=== PATIENT | female | born 1995 | race Caucasian/White ===

== ENCOUNTER 2016-06-07 18:37 | Observation (INO) | payer BC, OTHER ==
[2016-06-07 19:51] LABS: Hematocrit 39 % (35-47); Mean Corpuscular HGB Conc 33 g/dl (31-36); Mean Corpuscular Hemoglobin 28 pg (27-31); Mean Corpuscular Volume 85 fL (80-97); Mean Platelet Volume 8 um3 (7.4-10.4); Red Blood Count 4.62 10^6/ul (4.0-5.4); Red Cell Distribution Width 15 % (10.5-15); White Blood Count 8.4 10^3/ul (3.5-10.8)
[2016-06-07 19:59] LABS: ALT 9 U/L (7-52); AST 15 U/L (13-39); Albumin 4.4 g/dL (3.2-5.2); Alkaline Phosphatase 39 U/L (34-104); Anion Gap 6 mmol/L (2-11); BUN/Creatinine Ratio 11.7 (8-20); Blood Urea Nitrogen 9 mg/dL (6-24); CO2 Carbon Dioxide 26 mmol/L (22-32); Chloride 106 mmol/L (101-111); EGFR African American 121.7 (>60); EGFR Non-African American 94.6 (>60); Globulin 2.7 g/dL (2-4); Glucose 98 mg/dL (70-100); Potassium 3.7 mmol/L (3.5-5.0); Sodium 138 mmol/L (133-145); Total Protein 7.1 g/dL (6.4-8.9)
[2016-06-07 20:11] LABS: Acetaminophen < 15 mcg/mL; Alcohol < 10 mg/dL (<10); Salicylate < 2.50 mg/dL (<30)
[2016-06-07 20:21] LABS: TSH (Thyroid Stimulating Horm) 1.37 mcIU/mL (0.34-5.60)
[2016-06-07 20:34] LABS: Urine Bacteria Absent (Absent); Urine Bilirubin Negative (Negative); Urine Glucose Negative (Negative); Urine Nitrite Negative (Negative)
[2016-06-07 20:36] LABS: Benzodiazepine Urine Screen None Detected (None Detect)
--- NOTE | 2016-06-07 21:51 | ED ---
Fabricio Cole Claudia, scribed for Silvana Ramírez MD on 06/07/16 at 2014 . Psychiatric Complaint - HPI Summary HPI Summary: 20 year old female presents to the ED with depressive thoughts. Pt notes she took 90mg of Lexapro at about 1700 today. She notes that she has not been taking them but she notes that she had some left over. She notes that she has been feeling more stressed with school and spring break approaching. She notes no suicidal thoughts or plans today or in the past. - History Of Current Complaint Chief Complaint: EDOverdose Time Seen by Provider: 06/07/16 18:58 Hx Obtained From: Patient Onset/Duration: Sudden Onset Character: Depressed Ingestion History: Type/Name Of Drug - Lexapro, Amount Ingested - 90mg, Approximate Time Of Ingestion - 1700 - Allergies/Home Medications Allergies/Adverse Reactions: Allergies Allergy/AdvReac Type Severity Reaction Status Date / Time Penicillins Allergy Unknown Verified 06/07/16 18:43 Reaction Details Sulfa Antibiotics Allergy Unknown Verified 06/07/16 18:43 Reaction Details PMH/Surg Hx/FS Hx/Imm Hx Previously Healthy: Yes Endocrine/Hematology History: Denies: Hx Diabetes Cardiovascular History: Denies: Hx Myocardial Infarction - Immunization History Date of Tetanus Vaccine: utd Date of Influenza Vaccine: unk Infectious Disease History: Denies: Traveled Outside the [place] in Last 30 Days - Family History Known Family History: Positive: Other - Depression - Social History Occupation: Student Lives: Alone Alcohol Use: Occasionally Substance Use Type: Reports: Prescribed Substance Use Comment - Amount & Last Used: lexapro - took 90 mg today Smoking Status (MU): Never Smoked Tobacco Review of Systems Constitutional: Negative Negative: Fever, Chills Eyes: Negative ENT: Negative Cardiovascular: Negative Respiratory: Negative Gastrointestinal: Negative Genitourinary: Negative Musculoskeletal: Negative Skin: Negative Neurological: Negative Positive: Depressed All Other Systems Reviewed And Are Negative: Yes Physical Exam Triage Information Reviewed: Yes Vital Signs On Initial Exam: Initial Vitals Temp Pulse Resp BP Pulse Ox 98.2 F 92 18 146/93 100 06/07/16 18:44 06/07/16 18:44 06/07/16 18:44 06/07/16 18:44 06/07/16 18:44 Vital Signs Reviewed: Yes Appearance: Positive: Well-Appearing, No Pain Distress Skin: Positive: Warm, Skin Color Reflects Adequate Perfusion, Dry Eyes: Positive: EOMI, LÓPEZ ENT: Positive: Pharynx normal, TMs normal Neck: Positive: Supple, Nontender Respiratory/Lung Sounds: Positive: Clear to Auscultation, Breath Sounds Present. Negative: Rales, Rhonchi, Wheezes Cardiovascular: Positive: RRR. Negative: Murmur, Leg Edema Left, Leg Edema Right Abdomen Description: Positive: Nontender, Soft. Negative: Distended, Guarding Musculoskeletal: Positive: Strength/ROM Intact Neurological: Positive: Sensory/Motor Intact, Alert, Oriented to Person Place, Time, CN Intact II-III Psychiatric: Positive: Affect/Mood Appropriate - [place] Coma Scale Coma Scale Total: 15 Diagnostics - Vital Signs Vital Signs Temp Pulse Resp BP Pulse Ox 06/07/16 18:44 98.2 F 92 18 146/93 100 - Laboratory Lab Results: Lab Results 06/07/16 06/07/16 06/07/16 Range/Units 19:20 19:20 20:08 WBC 8.4 (3.5-10.8) 10^3/ul RBC 4.62 (4.0-5.4) 10^6/ul Hgb 13.0 (12.0-16.0) g/dl Hct 39 (35-47) % MCV 85 (80-97) fL MCH 28 (27-31) pg MCHC 33 (31-36) g/dl RDW 15 (10.5-15) % Plt Count 309 (150-450) 10^3/ul MPV 8 (7.4-10.4) um3 Neut % (Auto) 55.8 (38-83) % Lymph % (Auto) 32.4 (25-47) % Pepin % (Auto) 9.0 (1-9) % Eos % (Auto) 2.0 (0-6) % Baso % (Auto) 0.8 (0-2) % Absolute Neuts (auto) 4.7 (1.5-7.7) 10^3/ul Absolute Lymphs (auto) 2.7 (1.0-4.8) 10^3/ul Absolute Monos (auto) 0.8 (0-0.8) 10^3/ul Absolute Eos (auto) 0.2 (0-0.6) 10^3/ul Absolute Basos (auto) 0.1 (0-0.2) 10^3/ul Absolute Nucleated RBC 0.01 10^3/ul Nucleated RBC % 0.1 Sodium 138 (133-145) mmol/L Potassium 3.7 (3.5-5.0) mmol/L Chloride 106 (101-111) mmol/L Carbon Dioxide 26 (22-32) mmol/L Anion Gap 6 (2-11) mmol/L BUN 9 (6-24) mg/dL Creatinine 0.77 (0.51-0.95) mg/dL Est GFR ( Amer) 121.7 (>60) Est GFR (Non-Af Amer) 94.6 (>60) BUN/Creatinine Ratio 11.7 (8-20) Glucose 98 (70-100) mg/dL Calcium 9.0 (8.6-10.3) mg/dL Total Bilirubin 0.50 (0.2-1.0) mg/dL AST 15 (13-39) U/L ALT 9 (7-52) U/L Alkaline Phosphatase 39 (34-104) U/L Total Protein 7.1 (6.4-8.9) g/dL Albumin 4.4 (3.2-5.2) g/dL Globulin 2.7 (2-4) g/dL Albumin/Globulin Ratio 1.6 (1-3) TSH 1.37 (0.34-5.60) mcIU/mL Urine Color Yellow Urine Appearance Clear Urine pH 7.0 (5-9) Ur Specific [place] 1.013 (1.010-1.030) Urine Protein Negative (Negative) Urine Ketones Negative (Negative) Urine Blood 2+ H (Negative) Urine Nitrate Negative (Negative) Urine Bilirubin Negative (Negative) Urine Urobilinogen Negative (Negative) Ur Leukocyte Esterase Negative (Negative) Urine WBC (Auto) Absent (Absent) Urine RBC (Auto) 1+(3-5/hpf) H (Absent) Urine Bacteria Absent (Absent) Urine Glucose Negative (Negative) Salicylates < 2.50 (<30) mg/dL Urine Opiates Screen (None Detect) Acetaminophen < 15 mcg/mL Ur Barbiturates Screen (None Detect) Ur Phencyclidine Scrn (None Detect) Ur Amphetamines Screen (None Detect) U Benzodiazepines Scrn (None Detect) Urine Cocaine Screen (None Detect) U Cannabinoids Screen (None Detect) Serum Alcohol < 10 (<10) mg/dL 06/07/16 Range/Units 20:08 WBC (3.5-10.8) 10^3/ul RBC (4.0-5.4) 10^6/ul Hgb (12.0-16.0) g/dl Hct (35-47) % MCV (80-97) fL MCH (27-31) pg MCHC (31-36) g/dl RDW (10.5-15) % Plt Count (150-450) 10^3/ul MPV (7.4-10.4) um3 Neut % (Auto) (38-83) % Lymph % (Auto) (25-47) % Pepin % (Auto) (1-9) % Eos % (Auto) (0-6) % Baso % (Auto) (0-2) % Absolute Neuts (auto) (1.5-7.7) 10^3/ul Absolute Lymphs (auto) (1.0-4.8) 10^3/ul Absolute Monos (auto) (0-0.8) 10^3/ul Absolute Eos (auto) (0-0.6) 10^3/ul Absolute Basos (auto) (0-0.2) 10^3/ul Absolute Nucleated RBC 10^3/ul Nucleated RBC % Sodium (133-145) mmol/L Potassium (3.5-5.0) mmol/L Chloride (101-111) mmol/L Carbon Dioxide (22-32) mmol/L Anion Gap (2-11) mmol/L BUN (6-24) mg/dL Creatinine (0.51-0.95) mg/dL Est GFR ( Amer) (>60) Est GFR (Non-Af Amer) (>60) BUN/Creatinine Ratio (8-20) Glucose (70-100) mg/dL Calcium (8.6-10.3) mg/dL Total Bilirubin (0.2-1.0) mg/dL AST (13-39) U/L ALT (7-52) U/L Alkaline Phosphatase (34-104) U/L Total Protein (6.4-8.9) g/dL Albumin (3.2-5.2) g/dL Globulin (2-4) g/dL Albumin/Globulin Ratio (1-3) TSH (0.34-5.60) mcIU/mL Urine Color Urine Appearance Urine pH (5-9) Ur Specific [place] (1.010-1.030) Urine Protein (Negative) Urine Ketones (Negative) Urine Blood (Negative) Urine Nitrate (Negative) Urine Bilirubin (Negative) Urine Urobilinogen (Negative) Ur Leukocyte Esterase (Negative) Urine WBC (Auto) (Absent) Urine RBC (Auto) (Absent) Urine Bacteria (Absent) Urine Glucose (Negative) Salicylates (<30) mg/dL Urine Opiates Screen None detected (None Detect) Acetaminophen mcg/mL Ur Barbiturates Screen None detected (None Detect) Ur Phencyclidine Scrn None detected (None Detect) Ur Amphetamines Screen None detected (None Detect) U Benzodiazepines Scrn None detected (None Detect) Urine Cocaine Screen None detected (None Detect) U Cannabinoids Screen None detected (None Detect) Serum Alcohol (<10) mg/dL Result Diagrams: 06/07/16 19:20 06/07/16 19:20 Lab Statement: Any lab studies that have been ordered have been reviewed, and results considered in the medical decision making process. - EKG 1924 Cardiac Rate: NL EKG Rhythm: Sinus Rhythm - 84 BEATS/MIN ST Segment: Normal Ectopy: None Course/Dx - Course Course Of Treatment: 20 yo female who took 9 tabs of lexapro to be brought in as an obv for the ingestion - Differential Dx/Clinical Impression Provider Diagnosis: Overdose - Physician Notifications Discussed Care Of Patient With: Poison Control: They recommend EKG and Blood Work. Time Discussed With Above Provider: 19:20 Patient Is Medically Stable For: Psych Evaluation - 20:40 Discharge - Discharge Plan Condition: Stable Disposition: HOME Referrals: No Primary Care Phys,NOPCP [Primary Care Provider] - The documentation as recorded by the Fabricio kaur Claudia accurately reflects the service I personally performed and the decisions made by me, Silvana Ramírez MD.
[2016-06-07] MEDS ORDERED: Acetaminophen TAB* 325 MG PO PRN (22:01)
[2016-06-07] MEDS ORDERED: Ondansetron INJ* 2 MG/ML VIAL IV PRN (22:07)
--- NOTE | 2016-06-07 23:48 | HP ---
HOSPITAL MEDICINE HISTORY AND PHYSICAL: DATE OF ADMISSION: 06/07/16 PRIMARY CARE PROVIDER: At [facility]. ATTENDING PHYSICIAN: Dr. Deangelo Byrne *(dictated provided by Samantha Hernandez NP) CHIEF COMPLAINT: Overdose. HISTORY OF PRESENT ILLNESS: Ms. Medina is a 20-year-old female with past medical history of depression and anxiety, who presents to the emergency room out of concern for taking too many Lexapro today. Ms. Geronimo states that she was just under a lot of stress today and hoped to "change her mind." She reports that she had [place] of [place]. She states she was "never very good at taking pills" and that she simply stopped taking them over time. She had several of them at home and when she was feeling unwell and stressed today, she decided to take extra ones in hope that it will change her point of view. She denies any suicidal ideation or any intent to harm herself. She states that she has had an ongoing history of depression for the past 5 to 6 years and had been prescribed multiple different antidepressants by her fur tanner. She also believes she has anxiety as well. No other past medical history is evident. She states that she has been feeling otherwise well with no complaint of headaches, chest pain, shortness of breath, cough, nausea, vomiting, abdominal pain, or diarrhea. In the emergency room, Ms. Geronimo was found to have an EKG which showed sinus rhythm with no evidence of ischemia or QT prolongation. She states that she felt a little bit out of it when she first got here to the emergency room, but now is feeling great and wishes she could go home. PAST MEDICAL HISTORY: 1. Depression. 2. Anxiety. MEDICATIONS: None. ALLERGIES: None. FAMILY HISTORY: Her mother and father are alive and she knows of a history of depression in the family including her sister having depression and recent hospitalization. SOCIAL HISTORY: No report of tobacco or drug use. The patient states she does drink alcohol to excess and binge drink occasionally with the last time being last Saturday. REVIEW OF SYSTEMS: A 14-point review of systems was completed with Ms. Long Barcenas and all those not mentioned above were negative. PHYSICAL EXAMINATION GENERAL: Ms. Geronimo is lying in bed. She is in no acute distress. VITAL SIGNS: Temperature 98.2, heart rate 75, respiratory rate 15, O2 saturation 97% on room air, blood pressure 106/84. LUNGS: Clear to auscultation bilaterally with no accessory muscle use and good aeration. HEART: S1, S2. No murmur, rub, or gallop, and regular. ABDOMEN: Soft and nontender with bowel sounds x4. EXTREMITIES: No cyanosis or edema. SKIN: Intact. NEURO: She is alert and oriented x3. She moves all extremities equally. There is no facial asymmetry or focal weakness. Extraocular movements are intact. DIAGNOSTIC STUDIES/LAB DATA: WBC 8.4, hemoglobin 13.0, hematocrit 39, platelet count 309. Sodium 138, potassium 3.7, chloride 106, serum bicarbonate 26, BUN 9, creatinine 0.77, glucose 98. Urine shows no evidence of infection. Tox screen is negative. EKG again shows sinus rhythm with no evidence of ischemia and normal QT length of 433. ASSESSMENT AND PLAN: Ms. Medina is a 20-year-old female with past medical history of depression and anxiety, who presents today to the hospital after being stressed and feeling unhappy today and then taking 9 Lexapro tablets. Plans are for observation in the hospital for the followin. Lexapro overdose: Poison Control has been called and they are recommending that the patient be monitored in the hospital for 24 hours. They state that the likely side effects will be QT prolongation and confusion with altered mental status. The patient appears alert and oriented at this time. Her QT is normal. She will have a repeat check tonight and tomorrow before being discharged. 2. Question of suicide attempts: The patient expressively denies any intent to harm herself and states she "hoped to just feel better." I am suspicious about her characterization of the events given her longstanding history of depression and anxiety and use of multiple other antidepressant agents, I feel that the patient should have been aware that taking extra tabs would be harmful to her rather than helpful and question whether or not she is being honest in the depth of feelings today. Therefore, I would plan for her to have psychiatric evaluation with mental health sign maker tomorrow prior to discharge. 3. DVT prophylaxis: Early mobility. 4. Disposition: To telemetry floor. TIME SPENT: Approximately 60 minutes was spent on the admission of this patient , more than half the time spent with the patient at the bedside reviewing the events leading up to this hospitalization, performing the physical examination, and reviewing the plan of care. SAMANTHA HERNANDEZ NP CC: [facility]* [id number]/CPS #: [id number] DAVID
--- NOTE | 2016-06-08 15:16 | PN ---
Subjective Date of Service: 06/08/16 Interval History: Ms. Medina is very upset that she is to be admitted to the Behavioral Health Unit because of her overdose. She denies complaint now including chest pain, SOB, nausea, or abdominal pain. Objective Active Medications: Acetaminophen (Tylenol Tab*) 650 mg PO Q6H PRN Ondansetron HCl (Zofran Inj*) 4 mg IV Q6H PRN Vital Signs 06/07/16 06/07/16 06/07/16 22:00 22:30 23:12 Temperature 98.1 F Pulse Rate 82 75 78 Respiratory 19 15 18 Rate Blood Pressure 139/94 120/66 136/76 (mmHg) O2 Sat by Pulse 98 98 99 Oximetry 06/08/16 06/08/16 06/08/16 03:16 08:18 11:24 Temperature 99.5 F 98.2 F 98.6 F Pulse Rate 80 72 72 Respiratory 20 16 16 Rate Blood Pressure 125/64 116/69 119/72 (mmHg) O2 Sat by Pulse 97 98 98 Oximetry Oxygen Devices in Use Now: None Appearance: Female sitting up in bed crying, in no acute distress Respiratory: Symmetrical Chest Expansion and Respiratory Effort, Clear to Auscultation Cardiovascular: NL Sounds; No Murmurs; No JVD, No Edema Abdominal: NL Sounds; No Tenderness; No Distention Extremities: No Edema Skin: No Rash or Ulcers Neurological: Alert and Oriented x 3, NL Muscle Strength and Tone Nutrition: Taking PO's Result Diagrams: 06/07/16 19:20 06/07/16 19:20 Additional Lab and Data: Lab Results 06/07/16 06/07/16 06/07/16 Range/Units 19:20 19:20 20:08 WBC 8.4 (3.5-10.8) 10^3/ul RBC 4.62 (4.0-5.4) 10^6/ul Hgb 13.0 (12.0-16.0) g/dl Hct 39 (35-47) % MCV 85 (80-97) fL MCH 28 (27-31) pg MCHC 33 (31-36) g/dl RDW 15 (10.5-15) % Plt Count 309 (150-450) 10^3/ul MPV 8 (7.4-10.4) um3 Neut % (Auto) 55.8 (38-83) % Lymph % (Auto) 32.4 (25-47) % [place] % (Auto) 9.0 (1-9) % Eos % (Auto) 2.0 (0-6) % Baso % (Auto) 0.8 (0-2) % Absolute Neuts (auto) 4.7 (1.5-7.7) 10^3/ul Absolute Lymphs (auto) 2.7 (1.0-4.8) 10^3/ul Absolute Monos (auto) 0.8 (0-0.8) 10^3/ul Absolute Eos (auto) 0.2 (0-0.6) 10^3/ul Absolute Basos (auto) 0.1 (0-0.2) 10^3/ul Absolute Nucleated RBC 0.01 10^3/ul Nucleated RBC % 0.1 Sodium 138 (133-145) mmol/L Potassium 3.7 (3.5-5.0) mmol/L Chloride 106 (101-111) mmol/L Carbon Dioxide 26 (22-32) mmol/L Anion Gap 6 (2-11) mmol/L BUN 9 (6-24) mg/dL Creatinine 0.77 (0.51-0.95) mg/dL Est GFR ( Amer) 121.7 (>60) Est GFR (Non-Af Amer) 94.6 (>60) BUN/Creatinine Ratio 11.7 (8-20) Glucose 98 (70-100) mg/dL Calcium 9.0 (8.6-10.3) mg/dL Total Bilirubin 0.50 (0.2-1.0) mg/dL AST 15 (13-39) U/L ALT 9 (7-52) U/L Alkaline Phosphatase 39 (34-104) U/L Total Protein 7.1 (6.4-8.9) g/dL Albumin 4.4 (3.2-5.2) g/dL Globulin 2.7 (2-4) g/dL Albumin/Globulin Ratio 1.6 (1-3) TSH 1.37 (0.34-5.60) mcIU/mL Urine Color Yellow Urine Appearance Clear Urine pH 7.0 (5-9) Ur Specific [place] 1.013 (1.010-1.030) Urine Protein Negative (Negative) Urine Ketones Negative (Negative) Urine Blood 2+ H (Negative) Urine Nitrate Negative (Negative) Urine Bilirubin Negative (Negative) Urine Urobilinogen Negative (Negative) Ur Leukocyte Esterase Negative (Negative) Urine WBC (Auto) Absent (Absent) Urine RBC (Auto) 1+(3-5/hpf) H (Absent) Urine Bacteria Absent (Absent) Urine Glucose Negative (Negative) Salicylates < 2.50 (<30) mg/dL Urine Opiates Screen (None Detect) Acetaminophen < 15 mcg/mL Ur Barbiturates Screen (None Detect) Ur Phencyclidine Scrn (None Detect) Ur Amphetamines Screen (None Detect) U Benzodiazepines Scrn (None Detect) Urine Cocaine Screen (None Detect) U Cannabinoids Screen (None Detect) Serum Alcohol < 10 (<10) mg/dL 06/07/16 Range/Units 20:08 WBC (3.5-10.8) 10^3/ul RBC (4.0-5.4) 10^6/ul Hgb (12.0-16.0) g/dl Hct (35-47) % MCV (80-97) fL MCH (27-31) pg MCHC (31-36) g/dl RDW (10.5-15) % Plt Count (150-450) 10^3/ul MPV (7.4-10.4) um3 Neut % (Auto) (38-83) % Lymph % (Auto) (25-47) % [place] % (Auto) (1-9) % Eos % (Auto) (0-6) % Baso % (Auto) (0-2) % Absolute Neuts (auto) (1.5-7.7) 10^3/ul Absolute Lymphs (auto) (1.0-4.8) 10^3/ul Absolute Monos (auto) (0-0.8) 10^3/ul Absolute Eos (auto) (0-0.6) 10^3/ul Absolute Basos (auto) (0-0.2) 10^3/ul Absolute Nucleated RBC 10^3/ul Nucleated RBC % Sodium (133-145) mmol/L Potassium (3.5-5.0) mmol/L Chloride (101-111) mmol/L Carbon Dioxide (22-32) mmol/L Anion Gap (2-11) mmol/L BUN (6-24) mg/dL Creatinine (0.51-0.95) mg/dL Est GFR ( Amer) (>60) Est GFR (Non-Af Amer) (>60) BUN/Creatinine Ratio (8-20) Glucose (70-100) mg/dL Calcium (8.6-10.3) mg/dL Total Bilirubin (0.2-1.0) mg/dL AST (13-39) U/L ALT (7-52) U/L Alkaline Phosphatase (34-104) U/L Total Protein (6.4-8.9) g/dL Albumin (3.2-5.2) g/dL Globulin (2-4) g/dL Albumin/Globulin Ratio (1-3) TSH (0.34-5.60) mcIU/mL Urine Color Urine Appearance Urine pH (5-9) Ur Specific [place] (1.010-1.030) Urine Protein (Negative) Urine Ketones (Negative) Urine Blood (Negative) Urine Nitrate (Negative) Urine Bilirubin (Negative) Urine Urobilinogen (Negative) Ur Leukocyte Esterase (Negative) Urine WBC (Auto) (Absent) Urine RBC (Auto) (Absent) Urine Bacteria (Absent) Urine Glucose (Negative) Salicylates (<30) mg/dL Urine Opiates Screen None detected (None Detect) Acetaminophen mcg/mL Ur Barbiturates Screen None detected (None Detect) Ur Phencyclidine Scrn None detected (None Detect) Ur Amphetamines Screen None detected (None Detect) U Benzodiazepines Scrn None detected (None Detect) Urine Cocaine Screen None detected (None Detect) U Cannabinoids Screen None detected (None Detect) Serum Alcohol (<10) mg/dL Assess/Plan/Problems-Billing Assessment: Ms. Medina is a 20 yo female with a PMH of depression who was admitted on 06/07/16 after intentional overdose with lexapro. - Patient Problems (1) Overdose Comment: No evidence of QT prolongation. No confusion or altered mental status. Pt denies suicidal ideation but given overdose she has been evaluated to need inpatient psych admission. Status and Disposition: Discharge to Behavioral Health Unit.
--- NOTE | 2016-06-08 16:03 | CONS ---
PSYCHIATRIC CONSULTATION/PSYCHIATRIC ADMISSION HISTORY AND PHYSICAL UPDATE DATE OF CONSULT: 06/08/2016. 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 She is currently under Hospitalist care, having presented by ambulance reporting an intentional Escitalopram overdose and saying she was not sure that she did not want to hurt herself. HISTORY OF PRESENT ILLNESS: Yolanda reports suffering depression on and off since age 15 and has had difficulties over the course of the winter and spring. She said that around the holidays she intentionally overdosed with her Lexapro prescription, in a way to do something dangerous, since she said she knew it would not make her feel better. She said she became nauseous, but did not come to clinical attention. She reports not being engaged in outpatient treatment in the interval since then and has stopped taking antidepressants. She reported a difficult week in terms of a lot of stress at school and says that her sleep was reduced. She was feeling very dysphoric and hopeless, helpless to change her situation. She said as she worked through the week and anticipated going on spring break to go home now, she felt that nothing would make her feel better and she intentionally overdosed with her Lexapro. She denied thinking it was lethal or having clear intention to end her life, but she said she recognized that it was harmful and dangerous. After starting to feel nauseous, she activated emergency services by calling [facility]. She endorses chronic anxiety with some general features. She denies obsessions or compulsions, social features, or panic. She denies manic or psychotic symptoms. She denied new health problems. She reported drinking alcohol occasionally, about once a week and said that on occasional episodes she gets quite intoxicated. She denied the use of illicit drugs or medications by diversion and denied the use of tobacco. She was unhappy about the requirement for her admission to the Psychiatric Unit , stating that she would feel much better if she would just go home. PREVIOUS PSYCHIATRIC HISTORY: Has had counseling on and off, the last episode was over the summer of 2015 at her home in [place]. Problems have included identified eating disorder with anorexia and depression and anxiety. She denies a history of self-cutting or self-harm behaviors, other than the two instances of parasuicidal overdoses. She reported making her developmental milestones on time and denied academic or learning problems or social issues growing up. She reports anxiety is chronic and that she has had episodes of depression lasting approximately six months each having periods of about six months of remission since age 15. She denies that her periods of remission are associated with manic or hypomanic symptoms and denies any history of psychosis. She reported being evaluated with anorexia and said that she has periodically made herself throw up in an effort to control her weight. The last instances of an effort to throw up were within the last week or so. PAST MEDICAL HISTORY: No chronic illnesses. OUTPATIENT MEDICATIONS: None. Escitalopram is listed, but she reports not taking it regularly. DRUG ALLERGIES: PENICILLINS AND SULFA ANTIBIOTICS. FAMILY PSYCHIATRIC HISTORY: Sister suffers from depression and is in treatment. There is no family history of suicidal behavior. SUBSTANCE USE HISTORY: Reports alcohol has led to some unintentional sexual encounters, but otherwise no consequences. Said that she drinks to severe intoxication at rare instances, but drinks about once a week, less than her peers. She denies the use of illicit drugs or tobacco or the use of controlled medications by diversion. ABUSE HISTORY: Denies abuse or traumatic experiences. SOCIAL HISTORY: From an intact family, parents are alive and well and together. She has one paternal twin sister and reports getting along pretty well with her family, although they have conflict and fight at times. She reports a good experience growing up, is educated through her senior year at [employer] studying [employer]. She lives off campus. She reports having had friends over the years, fewer now, but she does not feel isolated. For leisure , she enjoys reading. She exercises and does a little yoga as part of her routine. She has identified as "questioning" in terms of her sexual preferences. She has been sexually active with males exclusively to intercourse and said overall her development of a gender identity, sexual preference, and sexual practice has been a comfortable process. RELEVANT CLINICAL STUDIES: CBC was normal. Comprehensive panel was normal. TSH was normal. Urinalysis had 2+ blood and 1+ RBC's. Toxicology screen was negative for Tylenol, alcohol or salicylates. Urine drug screen was negative. CLINICAL SUMMARY: Py[age]ek[age]oh[age]-old female with a history of outpatient treatment for depression and anxiety and an eating disorder. Subacutely, she has had difficulties over the winter and spring, has been out of treatment and has had two instances of parasuicidal behavior, the last more severe in terms of the quantity of the pills ingested. She requires emergency psychiatric hospitalization for safety, evaluation, stabilization and treatment planning. ADMISSION DIAGNOSES: Depressive disorder, anxiety disorder, anorexia nervosa. RECOMMENDATIONS/TREATMENT PLAN: Continue safety monitor while on the Medical floor. Admit to the Psychiatric Unit on an emergency legal status. Safety checks will start at 15 minute intervals. Initiate comprehensive group milieu and individual psychotherapeutic supports. Medication management would consider a resumed antidepressant treatment since Yolanda reported that she did have subjective benefits when she took them; however, she is declining that at this time. Estimated length of stay is three days. Target symptoms are parasuicidal behavior, elevated distress, impaired coping, dysphoria, and anxiety. The patient's strengths are her good intellectual functioning and intact baseline health. Further evaluation contemplates psychological testing. Discharge planning will involve coordination with appropriate aftercare. [id number]/[facility] #: [id number] DAVID
[2016-06-09 07:16] VITALS: BP 116/84
--- NOTE | 2016-06-09 08:23 | DS ---
HOSPITAL MEDICINE DISCHARGE SUMMARY: DATE OF ADMISSION: 06/07/16 DATE OF DISCHARGE: 06/08/16 ATTENDING PHYSICIAN: Natividad Augustin DO *(dictated provided by Samantha Hernandez NP) PRIMARY DIAGNOSIS: Lexapro overdose. SECONDARY DIAGNOSIS: Depression. MEDICATIONS AT THE TIME OF DISCHARGE: None. HOSPITAL COURSE: Ms. Medina is a 20-year-old female who has a history of depression and presented to the emergency room on 06/07/16 after ingesting 9 tabs of Lexapro intentionally. The patient stated that she had no intention of suicide, but "hoped to feel different." She did call call for help and was evaluated in the ED. EKG there showed no QT prolongation. The Poison Control was consulted and they recommended that the patient have 24 hours of observation for confusion and possible QT prolongation. The patient has had 3 EKGs since admission with no evidence of QT prolongation. We will check 1 immediately prior to discharge per their recommendations. Ms. Geronimo has had no acute complaints during the hospitalization. She is quite upset this time as she has been evaluated by the Behavioral Health Unit and felt to need inpatient admission there out of concern for suicidal intention. Plans are for her to be discharged there. DISPOSITION: To Behavioral Health Unit. DIET: Regular. ACTIVITY: As tolerated. FOLLOWUP PLAN: Please follow up with the providers at [facility] after discharge from Behavioral Health Unit. TIME SPENT: Approximately 60 minutes was spent in the discharge of this patient , more than half of the time was spent with the patient at the bedside reviewing the events leading up to and during this hospitalization, performing the physical examination, and reviewing the discharge plan. SAMANTHA HERNANDEZ NP CC: Providers at [facility]* [id number]/[facility] #: [id number] DAVID
== END 2016-06-09 10:00 | disposition home or self-care (01) ==
LOC: ED 18:37 → MEDTELE 21:44
PROVIDERS: ADMIT Internal Medicine; ATTEND Hospitalist
DX: T43.222A Poisoning by selective serotonin reuptake inhibitors, intentional self-harm, initial encounter (principal); Y92.9 Unspecified place or not applicable; F32.9 Major depressive disorder, single episode, unspecified; F41.9 Anxiety disorder, unspecified; Z88.0 Allergy status to penicillin; Z88.2 Allergy status to sulfonamides
CPT/HCPCS: 36415; 80053; 80307; 80320; 80329; 81003; 81015; 84443; 85025; 93005; 99285; G0378; G0480

== ENCOUNTER 2016-06-09 10:00 | Inpatient (IN) | payer OTHER ==
--- NOTE | 2016-06-10 15:27 | PN ---
Subjective - Subjective Service Type: 38249 Hosp care 15 min low complexity Subjective: Rita, is pleasant at first, endorses sustained improvement in previous mood and anxiety symptoms and absence of suicidal ideation or urges for sib. She feeks safe on the unit and find the setting helpful to learn additional coping skills. She requests discharge home today to return to [place] with her parents who are in town. She quickly becomes demanding, angry, loud, tearful and threatening , and devaluating of the unit and providers when told that I did not receive any sign-out from the consulting psychiatrist about a weekend discharge and she can submit a 72-hour notice and reproach the topic on Saturday with her treating psychiatrist. Patient declines recommendations for psychological testing and medication trial "All I need is to go home today!" Objective - Appearance Appearance: Healthy Appearing Dysmorphic Features: No Hygiene: Normal Grooming: Well Kept - Behavior Psychomotor Activities: Normal Exhibits Abnormal Movement: No - Attitude and Relatedness Attitude and Relatedness: Manipulative Eye Contact: Fair - Speech Quality: Unpressured Latencies: Normal Quantity: Appropriate - Mood Patient's Decription of Mood: "Upset" - Affect Observed Affect: Labile Affect Consistent with: Dysphoria - Thought Process Patient's Thought Process: Coherent, Goal Directed Thought Content: No Passive Wish, No Suicidal Planning, No Homicidal Ideation, No Paranoid Ideation - Sensorium Experiencing Hallucinations: No, Sensorium is Clear - Level of Consciousness Level of Consciousness: Alert Orientation: Yes Intact - Impulse Control Impulse Control: Tenuous - Insight and Judgement Insight and Judgement: Poor - Group Participation Particating in Group Activities: Yes - Medication Management Medication Management Adherence: Yes Assessment - Assessment Merits Inpatient Hospitalization: For Ongoing Evaluation, Consolidate Improvements, For Discharge Planning Inpatient DSM-IV Dx: Depressive disorder, anxiety disorder, anorexia nervosa, cluster b traits. Clinical Impression: Emsdks-jtf-arqu-old female with a history of outpatient treatment for depression and anxiety and an eating disorder, parasuicidal behavior, who was admitted to telemetry service after intentional overdose of prescribed escitalopram in the context of psychosocial stresses. She was seen in consultation and recommended for inpatient level of psychiatric care for safety , evaluation sand treatment. Superficially engaged in programming, denying suicidality, focusing on immediate discharge home. She continues to merit inpatient level of care for coordination of her aftercare. Plan - Plan Treatment Plan: Name: RITA DEL TORO Birthdate: 1995 [id number] Continued Medication Management: Consider Medication - Discharge Plan Discharge Plan: Outpatient Follow Up Outpatient Program: Counseling/Psych Services at [place]
[2016-06-11 07:55] VITALS: BP 117/72
--- NOTE | 2016-06-11 09:52 | DS ---
Subjective - Subjective Service Types: 04189 [facility] Day Mgmt simple under 30 min Discharge Date: 06/11/16 Subjective: Yolanda reports correction of coping difficulties and absence of emotional pain, distress, or any wishes. She is eager to go home, and sees a role for outpatient counseling and medication mgt. again. She said it's been stressful to be admitted, but that she has distances herself from the crisis she was in. I reviewed a letter from her mom to us, supporting Yolanda's release today. Yolanda and I reviewed aftercare planning, contemplating a visit this week with her therapist from home, and intake at [facility] on return to campus. We talked about considerations for her working with a provider around resumed medication use. She said she sees no barriers to routine care or emergency help if needed again. Objective - Appearance Appearance: Healthy Appearing Hygiene: Normal Grooming: Well Kept - Behavior Psychomotor Activities: Normal - Attitude and Relatedness Attitude and Relatedness: Appropriate Eye Contact: Good - Speech Quality: Unpressured Latencies: Normal Quantity: Appropriate - Mood Patient's Decription of Mood: "Good" - Affect Observed Affect: Non-labile Affect Consistent with: Euthymia - Thought Process Patient's Thought Process: Coherent, Goal Directed Thought Content: No Passive Wish, No Suicidal Planning, No Homicidal Ideation, No Paranoid Ideation - Sensorium Experiencing Hallucinations: No, Sensorium is Clear - Level of Consciousness Level of Consciousness: Alert - Impulse Control Impulse Control: Intact - Insight and Judgement Insight and Judgement: Good Treatment Course & Assessment Clinical Course & Impression: Rwzejt-iub[age]ubgf-old female with a history of outpatient treatment for depression and anxiety and an eating disorder. Subacutely, she has had difficulties over the winter and spring, has been out of treatment and has had two instances of parasuicidal behavior, the last more severe in terms of the quantity of the pills ingested. She required emergency psychiatric hospitalization. 06/11/16 Clear for release. Yolanda stabilized in this setting. She was safe on checks, free of ongoing suicidal ideation, adherent with unit routines. She was unhappy about her retention, and upset in frustration around not being released over the weekend. But apart from that she was observed to be in good behavioral control and free of impairing mood symptoms or incapacitating anxiety. Medication management for ongoing care outside the hospital should consider resumed antidepressant treatment given her prior subjective benefit. Target symptoms have been resolved. There were parasuicidal behavior, elevated distress, impaired coping, un-manageable dysphoria and anxiety. Yolanda is again appropriate for outpatient care. Risk concern centered on para-suicidal behavior. Yolanda is assessed to have elevated chronic risk for suicide based on her conditions and history. Acute risk is assessed as low on the basis of her low symptom burden, absence of impairment, and benign observed behavior and ideation. Clear for Discharge: Adequate Clinical Respons, Acceptable Safety Profile, Low Utility of Inpt Care Inpatient DSM-IV Dx: Depressive disorder, anxiety disorder, anorexia nervosa, cluster b traits. Discharge Planning - Discharge Planning Discharge Plan: Outpatient Follow Up Outpatient Program: Counseling/Psych Services at [place] Recommendations for Continuing Care: Medication Management, Psychotherapy Medications: NONE Discharge Planning: Prescriptions provided for discharge [] Yes [x] No Follow up care details as per social work arrangements. Patient response to discharge plan: [x] eager for discharge [] agreeable with discharge plan [] ambivalent about discharge [] disagrees with discharge today
== END 2016-06-11 13:20 | disposition home or self-care (01) | DRG 754 ==
LOC: BSU 10:00
PROVIDERS: ADMIT Psychiatry & Neurology Psychiatry; ATTEND Psychiatry & Neurology Psychiatry
DX: F32.9 Major depressive disorder, single episode, unspecified (principal); F50.00 Anorexia nervosa, unspecified; R45.851 Suicidal ideations; F41.9 Anxiety disorder, unspecified; Z88.0 Allergy status to penicillin; Z88.2 Allergy status to sulfonamides; Z81.8 Family history of other mental and behavioral disorders
CPT/HCPCS: 99222; 99238